=== PATIENT | female | born 1950 | race Hispanic/Latino ===

== ENCOUNTER 2017-01-27 10:50 | Day surgery (SDC) | payer MEDICARE, OTHER ==
[2016-07-19 12:25] VITALS: BMI 34.7
[2017-01-27] MEDS ORDERED: Lidocaine 2% Inj (20ml) ONE (12:40)
[2017-01-27] MEDS ORDERED: Propofol 10 mg/ml Inj (20 ML) ONE (12:50)
[2017-01-27] MEDS ORDERED: Lactated Ringer's 1,000 ML IV SCH (13:31)
[2017-01-27 14:40] VITALS: RESP 16
[2017-01-27 14:54] VITALS: BP 127/66; PULSE 70; TEMP 97.5
[2017-01-27 15:07] VITALS: O2SAT 96
== END 2017-01-27 15:16 | disposition home or self-care (01) ==
LOC: ENDO 10:50
PROVIDERS: ATTEND Internal Medicine
DX: Z12.11 Encounter for screening for malignant neoplasm of colon (principal); D12.5 Benign neoplasm of sigmoid colon; D12.3 Benign neoplasm of transverse colon; K62.1 Rectal polyp; K63.5 Polyp of colon; E11.9 Type 2 diabetes mellitus without complications; I10 Essential (primary) hypertension; J44.9 Chronic obstructive pulmonary disease, unspecified
CPT/HCPCS: 45380; 82948; 88305; J2704; J7120

== ENCOUNTER 2018-05-20 19:08 | Observation (INO) | payer MEDICARE, OTHER ==
--- NOTE | 2018-05-20 19:38 | ED PDOC ---
Arrival/HPI - General Chief Complaint: Weakness/Neurological Deficit Time Seen by Provider: 05/20/18 19:26 Historian: Patient - History of Present Illness Narrative History of Present Illness (Text): 05/20/18 19:35 Patient is a 67 year old female whose past medical history includes Martinez's palsy , and diabetes mellitus, who presents to the Emergency department complaining of left facial weakness prior to arrival. Patient reports having Martinez's palsy 5 years ago and denies any residual deficits. She currently complains of left facial weakness involving her left eyelid, and slight slurred speech. She mentions having a hard time closing her left eye, and is starting to experience a headache. Patient denies fevers, chills, cough, shortness of breath, chest pain, dyspnea on exertion, back pain, neck pain, dizziness, or any other complaint. Time/Duration: Prior to Arrival Symptom Onset: Sudden Symptom Course: Unchanged Context: Home Past Medical History - Provider Review Nursing Documentation Reviewed: Yes - Infectious Disease Hx of Infectious Diseases: None - Cardiac Hx Cardiac Disorders: Yes Hx Hypertension: Yes - Pulmonary Hx Respiratory Disorders: Yes Hx Chronic Obstructive Pulmonary Disease (COPD): Yes - Neurological Hx Neurological Disorder: Yes Other/Comment: MARTINEZ'S PALSEY - HEENT Hx HEENT Disorder: No - Renal Hx Renal Disorder: No - Endocrine/Metabolic Hx Endocrine Disorders: Yes Hx Diabetes Mellitus Type 2: Yes - Hematological/Oncological Hx Blood Disorders: No - Integumentary Hx Dermatological Disorder: No - Musculoskeletal/Rheumatological Hx Musculoskeletal Disorders: Yes Hx Back Pain: Yes - Gastrointestinal Hx Gastrointestinal Disorders: No - Genitourinary/Gynecological Hx Genitourinary Disorders: Yes Other/Comment: OVERACTIVE BLADDER - Psychiatric Hx Psychophysiologic Disorder: No Hx Substance Use: No - Surgical History Hx Appendectomy: Yes Hx Cardiac Catheterization: Yes Hx Coronary Stent: Yes - Anesthesia Hx Anesthesia Reactions: No - Suicidal Assessment Feels Threatened In Home Enviroment: No Family/Social History - Physician Review Nursing Documentation Reviewed: Yes Family/Social History: No Known Family HX Smoking Status: Never Smoked Hx Alcohol Use: No (RARE) Hx Substance Use: No Allergies/Home Meds Allergies/Adverse Reactions: Allergies Penicillins Allergy (Severe, Verified 05/20/18 19:13) SWELLING Home Medications: Home Meds Medication Instructions Recorded Confirmed Atenolol 100 mg PO QAM 10/02/15 05/20/18 Enalapril Maleate 10 mg PO BID 10/02/15 05/20/18 SITagliptin [Januvia] 75 mg PO DAILY 10/02/15 05/20/18 GlipiZIDE [Glucotrol] 5 mg PO BID 12/04/15 05/20/18 Simvastatin 20 mg PO QPM 12/04/15 05/20/18 metFORMIN [glucOPHAGE] 1,000 mg PO BID 12/04/15 05/20/18 Tolterodine [Detrol] 1 tab PO DAILY 02/26/16 05/20/18 Review of Systems - Physician Review All systems were reviewed & negative as marked: Yes - Review of Systems Constitutional: absent: Fevers, Night Sweats Respiratory: absent: SOB, Cough Cardiovascular: absent: Chest Pain, HAYES Musculoskeletal: absent: Back Pain, Neck Pain Neurological: Headache, Focal Weakness (left facial weakness). absent: Dizziness Physical Exam Vital Signs Reviewed: Yes Vital Signs Temp Pulse Resp BP Pulse Ox 05/20/18 22:31 84 18 148/74 94 L 05/20/18 21:09 79 20 146/75 93 L 05/20/18 19:15 98.7 F 86 16 188/83 H 94 L Temperature: Afebrile Blood Pressure: Hypertensive Pulse: Regular Respiratory Rate: Normal Appearance: Positive for: Well-Appearing Mental Status: Positive for: Alert and Oriented X 3 - Systems Exam Head: Present: Atraumatic, Normocephalic Pupils: Present: PERRL Extroacular Muscles: Present: EOMI Conjunctiva: Present: Normal Mouth: Present: Moist Mucous Membranes Neck: Present: Normal Range of Motion Respiratory/Chest: Present: Clear to Auscultation, Good Air Exchange. No: Respiratory Distress, Accessory Muscle Use Cardiovascular: Present: Regular Rate and Rhythm, Normal S1, S2. No: Murmurs Abdomen: No: Tenderness, Distention, Peritoneal Signs Back: Present: Normal Inspection Upper Extremity: Present: Normal Inspection. No: Cyanosis, Edema Lower Extremity: Present: Normal Inspection. No: Edema Neurological: Present: GCS=15, CN II-XII Intact, Other (Left facial droop, weakness of left side of forehead and left eyelid.) Skin: Present: Warm, Dry, Normal Color. No: Rashes Psychiatric: Present: Alert, Oriented x 3, Normal Insight, Normal Concentration Medical Decision Making ED Course and Treatment: 05/20/18 19:33 Impression: Patient is a 67 year old female who presents to the Emergency department with left facial weakness. Differential Diagnosis included but are not limited to: Martinez's Palsy Plan: -- EKG -- Head CT without contrast -- Chest X-ray -- Labs -- Cardiac enzymes -- Blood work -- IV fluids -- Reassess and disposition Prior Visits: Notes and results from previous visits were reviewed. Progress Notes: 05/20/18 19:24 Nurses called code stroke. Exam findings are consistent with Martinez's palsy. 05/20/18 19:[address] without IV contrast: FINDINGS: Brain: Unremarkable. No hemorrhage. No significant white matter disease. No edema. Ventricles: Unremarkable. No ventriculomegaly. Bones/joints: Unremarkable. No acute fracture. Soft tissues: Unremarkable. Sinuses: Unremarkable as visualized. No acute sinusitis. Mastoid air cells: Unremarkable as visualized. No mastoid effusion. IMPRESSION: No evidence for acute intracranial abnormality. Preliminary interpretation is based on receipt of 355 image(s). A final report will be issued subsequently. Dictated and Authenticated by: Brooke Colvin MD 05/20/18 20:[address] Molina, neurologist, and updated her that patient has Martinez' s palsy. 05/20/18 20:26 EKG shows NSR at [address]/T wave changes. Normal interval and normal axis. Interpreted by me. 05/20/18 20:33 Chest X-ray shows no acute processes. Interpreted by me. 05/20/18 21:14 Case discussed with medical care administrator business information analyst, who is aware and agrees with plan. 05/20/18 21:[address] Trevin Pardo, who is aware and agrees with plan. Accepts pt in to hospitalist service. Pt will go to remote telemetry observation for Martinez' s palsy. case d/w dr molina will cancel code stroke 05/21/18 20:14 - Lab Interpretations Lab Results: 05/20/18 19:31 05/20/18 19:31 Lab Results 05/20/18 20:14: Hemoglobin A1c 7.3 H 05/20/18 19:36: Blood Type A POSITIVE, Antibody Screen Negative, BBK History Checked No verified bt 05/20/18 19:31: Sodium 136, Potassium 4.5, Chloride 99, Carbon Dioxide 23, Anion Gap 19, BUN 17, Creatinine 0.8, Est GFR ( Amer) > 60, Est GFR (Non- Af Amer) > 60, Random Glucose 132 H, Calcium 9.4, Total Bilirubin 0.4, AST 39 H D, ALT 36, Alkaline Phosphatase 80, Troponin I < 0.01, Total Protein 8.2, Albumin 4.8, Globulin 3.4, Albumin/Globulin Ratio 1.4, Triglycerides 180 H, Cholesterol 152, LDL Cholesterol Direct 69, HDL Cholesterol 53 05/20/18 19:31: PT 10.7, INR 0.94, APTT 26.2 05/20/18 19:31: WBC 9.3 D, RBC 4.33, Hgb 12.5, Hct 37.2, MCV 85.9, MCH 28.9, MCHC 33.6, RDW 13.7, Plt Count 251, MPV 9.7, Gran % 75.6 H, Lymph % (Auto) 17.2 L, Meigs % (Auto) 5.4, Eos % (Auto) 1.6, Baso % (Auto) 0.2, Gran # 7.05 H, Lymph # (Auto) 1.6, Meigs # (Auto) 0.5, Eos # (Auto) 0.2, Baso # (Auto) 0.02 05/20/18 08:55: Blood Type Confirm A POSITIVE I have reviewed the lab results: Yes - RAD Interpretation Radiology Orders: 05/20/18 19:31 HEAD W/O (CODE STROKE) [CT] Stat CHEST PORTABLE [RAD] Stat Soakers Supervisor: ED Physician, Radiologist - EKG Interpretation Interpreted by ED Physician: Yes Type: 12 lead EKG - Medication Orders Current Medication Orders: Albuterol/Ipratropium (Duoneb 3 Mg/0.5 Mg (3 Ml) Ud) 3 ml IH [id number] PRN PRN Reason: Shortness of Breath Artificial Tears (Artificial Tears) 1 ml OU BID PRN PRN Reason: Dry eyes Last Admin: 05/21/18 10:02 Dose: 1 drop Aspirin (Ecotrin) 81 mg PO DAILY [facility] Last Admin: 05/21/18 10:03 Dose: 81 mg Atenolol (Tenormin) 100 mg PO QAM [facility] Last Admin: 05/21/18 10:04 Dose: 100 mg Atorvastatin Calcium (Lipitor) 10 mg PO DIN [facility] Last Admin: 05/21/18 17:45 Dose: 10 mg Clopidogrel Bisulfate (Plavix) 75 mg PO DAILY [facility] Last Admin: 05/21/18 10:04 Dose: 75 mg Docusate Sodium (Colace) 100 mg PO BID [facility] Last Admin: 05/21/18 17:44 Dose: 100 mg Last Bowel Movement Document 05/21/18 17:44 RA (Rec: 05/21/18 17:44 RA [id number]) Last Bowel Movement Last Bowel Movement 05/20/18 Glipizide (Glucotrol) 5 mg PO BID [facility] Last Admin: 05/21/18 17:45 Dose: 5 mg Acyclovir 800 mg/ Sodium (Chloride) 100 mls @ 100 mls/hr IV Q8 [facility] PRN Reason: Protocol Last Admin: 05/21/18 21:33 Dose: 100 mls/hr eMAR Start Stop Document 05/21/18 21:33 SD (Rec: 05/21/18 21:33 SD [id number]) Intravenous Solution Start Date 05/21/18 Start Time 21:33 Insulin Human Regular (Humulin R Low) 0 units SC ACHS [facility] PRN Reason: Protocol Last Admin: 05/21/18 22:10 Dose: Not Given Non-Admin Reason: Blood Sugar Parameter MAR Blood Glucose Document 05/21/18 22:10 SD (Rec: 05/21/18 22:10 SD [id number]) Blood Glucose Finger Stick Blood Glucose (70-120) 271 Lisinopril (Zestril) 20 mg PO DAILY [facility] Last Admin: 05/21/18 10:04 Dose: 20 mg Methylprednisolone (Solu-Medrol) 60 mg IVP DAILY [facility] Last Admin: 05/21/18 10:03 Dose: 60 mg IVP Administration Document 05/21/18 10:03 RA (Rec: 05/21/18 10:03 RA [id number]) Charges for Administration # of IVP Administrations 1 Non-Formulary Medication (Tolterodine [Detrol]) 1 tab PO DAILY [facility] Pantoprazole Sodium (Protonix Ec Tab) 40 mg PO 0600 [facility] Last Admin: 05/21/18 06:30 Dose: 40 mg Discontinued Medications Glipizide (Glucotrol) 5 mg PO BIDWM [facility] Last Admin: 05/21/18 10:06 Dose: 5 mg Sodium Chloride (Sodium Chloride 0.9%) 1,000 mls @ 100 mls/hr IV .Q10H [facility] Last Admin: 05/20/18 21:17 Dose: 100 mls/hr eMAR Start Stop Document 05/20/18 21:17 JOL (Rec: 05/20/18 21:18 JOL [id number]) Intravenous Solution Start Date 05/20/18 Start Time 21:18 Methylprednisolone (Solu-Medrol) 60 mg IVP Q8 [facility] Last Admin: 05/21/18 06:30 Dose: 60 mg IVP Administration Document 05/21/18 06:30 [facility] (Rec: 05/21/18 06:30 [facility]) Charges for Administration # of IVP Administrations 1 Methylprednisolone (Solu-Medrol) 60 mg IV STAT STA Stop: 05/20/18 22:40 Last Admin: 05/21/18 00:57 Dose: 60 mg eMAR Start Stop Document 05/21/18 00:57 [facility] (Rec: 05/21/18 00:57 [facility]) Intravenous Solution Start Date 05/21/18 Start Time 00:57 Pneumococcal Polyvalent Vaccine (Pneumovax 23 Vaccine) 0.5 ml IM .ONCE ONE Stop: 05/21/18 00:13 Last Admin: 05/21/18 07:47 Dose: MAR Immunization Data Document 05/21/18 07:47 RA (Rec: 05/21/18 07:47 RA [email or web address]) Immunization Data Vaccine Information Sheet Given Yes Immunization Registry Document 05/21/18 07:47 RA (Rec: 05/21/18 07:47 RA [email or web address]) Immunization Registry Consent Date 05/20/18 Prednisone (Prednisone Tab) 60 mg PO ONCE STA Stop: 05/20/18 21:16 Last Admin: 05/20/18 21:30 Dose: 60 mg NIHSS Scale ([place]) Time Performed: 19:24 - How Severe is the Stoke Baseline Level of Consciousness: 0=Alert LOC to Questions: 0=Both comments correct LOC to commands: 0=Obeys both correctly Best Gaze: 0=Normal Visual: 0=No visual loss Facial: 1=Minor asymmetry Motor Arm - Left: 0=No drift Motor Arm - Right: 0=No drift Motor Leg - Left: 0=No drift Motor Leg - Right: 0=No drift Limb Ataxia: 0=Absent Sensory: 0=Normal Best Language: 0=No aphasia Dysarthia: 0=Normal articulation Extinction & Inattention (Neglect): 0=Normal, no object Score: 1 Risk Level: Minor Stroke Risk rTPA Inclusion/Exclusion - Refusal of Treatment Patient Refused Treatment: No - Inclusion Criteria for Altepase Patient is 18 years or Older: Yes The Clinical Diagnosis of Ischemic Stroke That is Causing a Potentially Disabling Neurological Deficit: No Time of Onset is Well Established to be Less Than 270 Minute Before Treatment Would Begin: Yes Risk/Benefit Discussed With Patient/Family Member Present: Yes - Exclusion Criteria for Altepase Uncontrolled Hypertension at Time of Treatment (Systolic BP above 185 or Diastolic BP above 110 mmHg): No Active Internal Bleeding: No Known Bleeding Diathesis Including but Not Limited to: Platelets Below 100,000/ mm,PTT Above 40 sec After Heparin Use, Current Use of Oral Anitcoagulant With INR Greater Than 1.7 or PT Greater Than 15 secs: No Evidence of an Intracranial Hemorrhage: No Evidence of Major Acute Infarct With Signs Greater Than 1/3 MCA Territory: No Suspicion of Subarachnoid Hemorrhage on Pretreatment Evaluation Even if CT Head Negative For Hemorrhage: No - Warning to TPA With Conditions Following Conditions Weighed Against Anticipated Benefit: Yes Condition: Stroke Serevity Too Mild - Scribe Statement The provider has reviewed the documentation as recorded by the Kiaraibmaryann Webb Provider Scribe Attestation: All medical record entries made by the Scribe were at my direction and personally dictated by me. I have reviewed the chart and agree that the record accurately reflects my personal performance of the history, physical exam, medical decision making, and the department course for this patient. I have also personally directed, reviewed, and agree with the discharge instructions and disposition. Disposition/Present on Arrival - Present on Arrival Any Indicators Present on Arrival: No History of DVT/PE: No History of Uncontrolled Diabetes: No Urinary Catheter: No History of Decub. Ulcer: No History Surgical Site Infection Following: None - Disposition Have Diagnosis and Disposition been Completed?: Yes Diagnosis: Martinez's palsy Disposition: HOSPITALIZED Disposition Time: 21:25 Condition: GOOD
[2018-05-20] MEDS ORDERED: Sodium Chloride 0.9% 1,000 ML IV SCH (19:45)
[2018-05-20 19:55] LABS: BASO # 0.02 K/mm3 (0.0-2.0); BASO % 0.2 % (0.0-3.0); EOS # 0.2 (0.0-0.7); EOS % 1.6 % (1.5-5.0); GRAN # 7.05 (1.4-6.5); GRAN % 75.6 % (50.0-68.0); HEMOGLOBIN 12.5 g/dL (12.0-16.0); LYMPH # 1.6 (1.2-3.4); LYMPH % 17.2 % (22.0-35.0); MEAN CELL VOLUME 85.9 fl (80.0-105.0); MEAN CORPUSCULAR HEMOGLOBIN 28.9 pg (25.0-35.0); MEAN CORPUSCULAR HGB CONC 33.6 g/dl (31.0-37.0); MEAN PLATELET VOLUME 9.7 fl (7.0-11.0); MONO # 0.5 (0.1-0.6); MONO % 5.4 % (1.0-6.0); RBC 4.33 10^6/uL (3.5-6.1); RED CELL DISTRIBUTION WIDTH 13.7 % (11.5-14.5); WHITE BLOOD COUNT 9.3 10^3/ul (4.5-11.0)
[2018-05-20 19:56] LABS: ALB/GLOB RATIO 1.4 (1.1-1.8); ALBUMIN 4.8 g/dL (3.0-4.8); ALT/SGPT 36 U/L (7-56); AST/SGOT 39 U/L (14-36); BLOOD UREA NITROGEN 17 mg/dL (7-21); CALCIUM 9.4 mg/dL (8.4-10.5); GFR NON-AFRICAN AMERICAN > 60; HDL CHOLESTEROL 53 mg/dL (29-60)
[2018-05-20 19:59] LABS: INR 0.94; PARTIAL THROMBOPLASTIN TIME 26.2 Seconds (25.1-36.5); PROTHROMBIN TIME 10.7 SECONDS (9.4-12.5)
[2018-05-20 20:07] LABS: LDL CHOLESTEROL 69 mg/dL (0-129)
[2018-05-20 20:10] LABS: TROPONIN I < 0.01 ng/mL
[2018-05-20] MEDS ORDERED: MethylPREDNISolone 40 mg Vial IV STA (22:39)
[2018-05-20] MEDS ORDERED: Albuterol-Ipratrop 3 mg / 0.5 (3 ml) UD IH PRN (23:00)
--- NOTE | 2018-05-20 23:27 | CP.PCM.HP ---
History of Present Illness - History of Present Illness History of Present Illness: Bry Cui, PGY-1 History and Physical for Hospitalist Service CC: L sided facial weakness HPI: Ms. Cowart is a 67 year old female with a PMHx of Martinez's Palsy in 09/14, CAD s/p stent, HTN, COPD, DM, and overactive bladder who presents with L sided facial weakness that began this aftrnoon at 4 pm. The patient reports some numbness below the left nares that progressed over an hour to the left jaw and then up the left cheek. Patient denies any dizziness or changes in vision, and reports that this is the same symptoms she felt when she was diagnosed with martinez 's palsy four and a half years ago. She denies recent upper respiratory infections but does admit to recurring cold sores in the mouth. Patient drove herself to the hospital, during which time she noticed an inability to fully pronounce her vowels with some weakness on the left side of her face. At time of evaluation, no slurring of her words are appreciated. Some mild oral weakness currently. Patient reports shortness of breath and constipation but states that is her baselines. Patient denies, chest pain, palpitations, fevers, chills, cough, sore throat, weakness, recent travel, bruising, sick contacts, changes in weight. PMHx: as above PSHx: Appendectomy, foot surgery All: PCN Social: Denies ETOH and IVDU. Tobacco 1/2 pk /day x18 years but quit a few years ago. 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 Haas Cardio: Dr Quiroz Pulm: Dr. Genao Podiatry: Dr. Herron Present on Admission - Present on Admission Any Indicators Present on Admission: No Review of Systems - Review of Systems Review of Systems: 12 point ROS completed and negative except as described in HPI. Past Patient History - Infectious Disease Hx of Infectious Diseases: None - Past Social History Smoking Status: Never Smoked - CARDIAC Hx Cardiac Disorders: Yes Hx Hypertension: Yes - PULMONARY Hx Respiratory Disorders: Yes Hx Chronic Obstructive Pulmonary Disease (COPD): Yes - NEUROLOGICAL Hx Neurological Disorder: Yes Other/Comment: MARTINEZ'S PALSEY - HEENT Hx HEENT Problems: No - RENAL Hx Chronic Kidney Disease: No - ENDOCRINE/METABOLIC Hx Endocrine Disorders: Yes Hx Diabetes Mellitus Type 2: Yes - HEMATOLOGICAL/ONCOLOGICAL Hx Blood Disorders: No - INTEGUMENTARY Hx Dermatological Problems: No - MUSCULOSKELETAL/RHEUMATOLOGICAL Hx Musculoskeletal Disorders: Yes Hx Back Pain: Yes - GASTROINTESTINAL Hx Gastrointestinal Disorders: No - GENITOURINARY/GYNECOLOGICAL Hx Genitourinary Disorders: Yes Other/Comment: OVERACTIVE BLADDER - PSYCHIATRIC Hx Psychophysiologic Disorder: No Hx Substance Use: No - SURGICAL HISTORY Hx Appendectomy: Yes Hx Cardiac Catheterization: Yes Hx Coronary Stent: Yes - ANESTHESIA Hx Anesthesia Reactions: No Meds Allergies/Adverse Reactions: Allergies Allergy/AdvReac Type Severity Reaction Status Date / Time Penicillins Allergy Severe SWELLING Verified 05/20/18 19:13 Physical Exam - Head Exam Head Exam: ATRAUMATIC, NORMAL INSPECTION, NORMOCEPHALIC - Eye Exam Eye Exam: EOMI, Normal appearance. absent: Nystagmus Pupil Exam: PERRL Additional comments: R eye has extra pigmentation expanding into the bottom portion of the sclera - ENT Exam ENT Exam: Mucous Membranes Moist, Normal Exam - Neck Exam Neck exam: Positive for: Normal Inspection. Negative for: Lymphadenopathy, Tenderness, Thyromegaly - Respiratory Exam Respiratory Exam: Clear to Auscultation Bilateral, NORMAL BREATHING PATTERN. absent: Rhonchi, Wheezes, Respiratory Distress, Stridor - Cardiovascular Exam Cardiovascular Exam: RRR, +S1, +S2 - GI/Abdominal Exam GI & Abdominal Exam: Normal Bowel Sounds, Soft. absent: Distended, Guarding, Rebound, Tenderness - Extremities Exam Extremities exam: Positive for: calf tenderness (occasional cramp in R foot), full ROM. Negative for: pedal edema - Neurological Exam Neurological exam: Alert, CN II-XII Intact, Normal Gait, Oriented x3, Reflexes Normal - Expanded Neurological Exam Expanded Patient oriented to: person, place, time Speech: Fluid Speech Cranial nerves: EOM's Intact: Normal, Facial Palsey w/Forehead Movement: Abnormal Left (left side of mouth slight droop), Facial Palsey w/o Forehead Movement: Normal, Facial Sensation: Normal, Nystagmus: Normal, Tongue Deviation : Normal Ataxia: No Cerebellar Function: Finger to Nose: Normal, Heel to Garcia: Normal Upper motor neuron: Pronator Drift: Normal Sensory exam: Lower Extremity 2 Point Discrimination: Normal, Lower Extremity Light Touch: Normal, Lower Extremity Pin Prick: Normal, Upper Extremity 2 Point Discrimination: Normal, Upper Extremity Light Touch: Normal, Upper Extremity Pin Prick: Normal Neuro motor strength exam: Left Upper Extremity: 5, Right Upper Extremity: 5, Left Lower Extremity: 5, Right Lower Extremity: 5 Coma Scale Eye Opening: SPONTANEOUS Coma Scale Motor Response: OBEYS COMMANDS Coma Scale Verbal: Oriented Coma Scale Total: 15 - Psychiatric Exam Psychiatric exam: Normal Affect, Normal Mood - Skin Skin Exam: Dry, Intact, Normal Color, Warm Results - Vital Signs Recent Vital Signs: Last Vital Signs Temp 98.7 F 05/20/18 19:15 Pulse 84 05/20/18 22:31 Resp 18 05/20/18 22:31 BP 148/74 05/20/18 22:31 Pulse Ox 94 L 05/20/18 22:31 - Labs Result Diagrams: 05/20/18 19:31 05/20/18 19:31 Assessment & Plan - Assessment and Plan (Free Text) Assessment: 67 year old Female with a PMHX of Martinez's Palsy in 09/14, CAD s/p stent, HTN, COPD, DM, and overactive bladder who presents with likely recurrent effects of history of Left sided martinez's palsy weakness. Plan: L sided facial weakness 2/2 flare of Martinez's Palsy vs inflammatory disease vs DM vs sarcoid Code stroke called in ED CT head negative CXR negative EKG shows NSR at [address]/T wave changes. Patient describes symptoms exactly as they were when first diagnosed almost 5 years ago no residual weakness, aphasia, or ataxia. Passed nursing swallow screen patient received 60 prednisone PO and 60 IV solu-medrol tonight, will begin on solu-medrol 60 q8 in AM Neuro consulted (Dr. Okeefe) - appreciate recommendations Neuro checks q4 f/u AM labs f/u JONELLE levels for concern of sarcoid causing pressure on facial nerve in setting of shortness of breath DM low ISS accuchecks HHD can expect elevations 2/2 steroids f/u a1c COPD Duonebs 3 q6 prn steroids continue to monitor saturation HTN continue home meds HLD Cholesterol 180 c/w home meds Constipation colace 100 BID per patient reported home dose continue to monitor CAD continue dual anti-platelet therapy Overactive bladder continue home med GI/DVT ppx SCD's Protonix 40 Patient seen, case reviewed and plan discussed with Dr. Pardo. Bry Cui, PGY-1
[2018-05-21 00:12] VITALS: BMI 35.7
[2018-05-21] MEDS ORDERED: Pneumococcal 23-Valent Vaccine IM ONE (00:12)
[2018-05-21] MEDS ORDERED: MethylPREDNISolone 40 mg Vial IVP SCH ×2 (06:00→10:00)
[2018-05-21] MEDS: Pantoprazole 40 mg EC Tab PO SCH (06:30)
[2018-05-21 06:51] VITALS: RESP 20
[2018-05-21 08:05] LABS: GRAN # 6.48 (1.4-6.5); GRAN % 90.8 % (50.0-68.0); HEMOGLOBIN 12.6 g/dL (12.0-16.0); LYMPH # 0.6 (1.2-3.4); LYMPH % 8.8 % (22.0-35.0); MEAN CELL VOLUME 85.4 fl (80.0-105.0); MEAN CORPUSCULAR HEMOGLOBIN 29.6 pg (25.0-35.0); MEAN CORPUSCULAR HGB CONC 34.6 g/dl (31.0-37.0); MEAN PLATELET VOLUME 9.8 fl (7.0-11.0); MONO % 0.4 % (1.0-6.0); PLATELET COUNT 232 10^3/uL (120.0-450.0); RBC 4.26 10^6/uL (3.5-6.1); RED CELL DISTRIBUTION WIDTH 13.8 % (11.5-14.5); WHITE BLOOD COUNT 7.1 10^3/ul (4.5-11.0)
[2018-05-21] MEDS: Insulin Reg-LOW-Coverage SC SCH ×4 (08:08→22:10)
[2018-05-21] MEDS ORDERED: Aritificial Tears (15ml) OU PRN (08:41)
[2018-05-21 08:44] LABS: BLOOD UREA NITROGEN 17 mg/dL (7-21); CALCIUM 9.5 mg/dL (8.4-10.5); GFR NON-AFRICAN AMERICAN > 60
--- NOTE | 2018-05-21 08:48 | CP.PCM.PN ---
<Lexa Montesinos - Last Filed: 05/21/18 10:41> Subjective - Date & Time of Evaluation Date of Evaluation: 05/21/18 Time of Evaluation: 07:00 - Subjective Subjective: Patient seen and evaluated bed side this morning. NO acute issues overnight. Patient states she still feels some numbness by her mouth on the left side. Denies any other new symptoms. She also states her eyes are dry and usually are dry. Denies chest pain, SOB, fever, chills, any focal deficits, or any other complaints at this time. Objective - Vital Signs/Intake and Output Vital Signs (last 24 hours): Temp Pulse Resp BP Pulse Ox 98.4 F 83 20 135/58 L 97 05/21/18 06:00 05/21/18 06:00 05/21/18 06:00 05/21/18 06:00 05/21/18 06:00 Intake and Output: 05/21/18 05/21/18 06:59 18:59 Intake Total 720 Balance 720 - Medications Medications: Current Medications Albuterol/Ipratropium (Duoneb 3 Mg/0.5 Mg (3 Ml) Ud) 3 ml IH [id number] PRN PRN Reason: Shortness of Breath Artificial Tears (Artificial Tears) 1 ml OU BID PRN PRN Reason: Dry eyes Aspirin (Ecotrin) 81 mg PO DAILY [facility] Atenolol (Tenormin) 100 mg PO QAM [facility] Atorvastatin Calcium (Lipitor) 10 mg PO DIN [facility] Clopidogrel Bisulfate (Plavix) 75 mg PO DAILY [facility] Docusate Sodium (Colace) 100 mg PO BID [facility] Glipizide (Glucotrol) 5 mg PO BIDWM [facility] Insulin Human Regular (Humulin R Low) 0 units SC ACHS [facility] PRN Reason: Protocol Last Admin: 05/21/18 08:08 Dose: 3 unit Lisinopril (Zestril) 20 mg PO DAILY [facility] Last Admin: 05/21/18 00:52 Dose: 20 mg Methylprednisolone (Solu-Medrol) 60 mg IVP DAILY [facility] Non-Formulary Medication (Tolterodine [Detrol]) 1 tab PO DAILY [facility] Pantoprazole Sodium (Protonix Ec Tab) 40 mg PO 0600 [facility] Last Admin: 05/21/18 06:30 Dose: 40 mg - Labs Labs: 05/21/18 07:00 05/21/18 07:00 PT 10.7 SECONDS (9.4-12.5) 05/20/18 19:31 INR 0.94 05/20/18 19:31 APTT 26.2 Seconds (25.1-36.5) 05/20/18 19:31 - Constitutional Appears: Well, Non-toxic, No Acute Distress - Head Exam Head Exam: ATRAUMATIC, NORMAL INSPECTION, NORMOCEPHALIC - Eye Exam Eye Exam: EOMI, PERRL. absent: Nystagmus Pupil Exam: NORMAL ACCOMODATION, PERRL Additional comments: right eye droop, right nasal labial fold deviating to the right - ENT Exam ENT Exam: Mucous Membranes Dry - Neck Exam Neck Exam: Normal Inspection. absent: Lymphadenopathy - Respiratory Exam Respiratory Exam: Clear to Ausculation Bilateral, NORMAL BREATHING PATTERN - Cardiovascular Exam Cardiovascular Exam: REGULAR RHYTHM, +S1, +S2 - GI/Abdominal Exam GI & Abdominal Exam: Soft, Normal Bowel Sounds. absent: Tenderness - Extremities Exam Extremities Exam: Full ROM. absent: Calf Tenderness, Pedal Edema - Neurological Exam Neurological Exam: Alert, Awake, CN II-XII Intact Neuro motor strength exam: Left Upper Extremity: 5, Right Upper Extremity: 5, Left Lower Extremity: 5, Right Lower Extremity: 5 Additional comments: slight facial droop on right side of face, unable to puff out cheek on right side - Skin Skin Exam: Normal Color, Warm Assessment and Plan - Assessment and Plan (Free Text) Assessment: 67 year old Female with a PMHX of Martinez's Palsy in 09/14, CAD s/p stent, HTN, COPD, DM, and overactive bladder who presents with left sided facial weakness. Plan: L sided facial weakness -Code stroke called in ED -CT head negative -CXR negative -EKG shows NSR at [address]/T wave changes. -no residual weakness, aphasia, or ataxia. Passed nursing swallow screen -solumedrol 60 IV daily -Neuro consulted Dr. Okeefe, follow recs -Neuro checks q4 -continue to monitor symptoms -artificial tears -NELLY, RF ordered DM -low ISS with accuchecks ACHS -HHD -can expect elevations 2/2 steroids -started on home lipizide 5mg BID COPD-chronic -Duonebs 3 q6 prn -steroids -continue to monitor oxygen saturation HTN-chronic -continue home meds HLD-chronic -c/w home meds Constipation-chronic -colace 100 BID per patient reported home dose -continue to monitor CAD -continue home aspirin and plavix Overactive bladder -continue home tolteridine GI/DVT ppx SCD's Protonix 40 <HeribertoKiah mendoza - Last Filed: 05/22/18 15:26> Objective - Vital Signs/Intake and Output Vital Signs (last 24 hours): Temp Pulse Resp BP Pulse Ox 98 F 58 L 20 136/53 L 98 05/22/18 08:11 05/22/18 10:00 05/22/18 08:11 05/22/18 09:14 05/22/18 08:11 Intake and Output: 05/22/18 05/22/18 06:59 18:59 Intake Total 300 Balance 300 - Labs Labs: 05/22/18 05:50 05/22/18 05:50 PT 10.7 SECONDS (9.4-12.5) 05/20/18 19:31 INR 0.94 05/20/18 19:31 APTT 26.2 Seconds (25.1-36.5) 05/20/18 19:31 Attending/Attestation - Attestation I have personally seen and examined this patient.: Yes I have fully participated in the care of the patient.: Yes I have reviewed all pertinent clinical information, including history, physical exam and plan: Yes Notes (Text): 05/22/18 15:18 Attending note; Patient is a 67 year old Female with a PMHX of Martinez's Palsy in 09/14, CAD s/p stent, HTN, COPD, DM, and overactive bladder who presents with left sided facial weakness. Initial CT head is negative. Initially code stroke was called. Case discussed with neurologist in detail. Patient with left facial nerve palsy. Started on IV prednisolone and acyclvir. left eye patch ordered. Artificial tears ordered. patient denies any focal neurological deficit. MRI ordered. Possible discharge home tomorrow if clinically stable. upon discharge the patient will follow-up with PMd DR. Hutchinson.
--- NOTE | 2018-05-21 09:10 | RAD ---
Date of service: 05/20/2018 HISTORY: Code Stroke COMPARISON: Comparison chest 02/26/2016 FINDINGS: LUNGS: Minor bibasilar atelectasis. PLEURA: No significant pleural effusion identified, no pneumothorax apparent. CARDIOVASCULAR: Mild cardiomegaly. OSSEOUS STRUCTURES: No significant abnormalities. VISUALIZED UPPER ABDOMEN: Normal. OTHER FINDINGS: None. IMPRESSION: Minor bibasilar atelectasis.
--- NOTE | 2018-05-21 09:36 | CT ---
Date of service: 05/20/2018 PROCEDURE: CT HEAD WITHOUT CONTRAST. HISTORY: CVA COMPARISON: None available. TECHNIQUE: Axial computed tomography images were obtained through the head/brain without intravenous contrast. Radiation dose: Total exam DLP = 874.81 mGy-cm. This CT exam was performed using one or more of the following dose reduction techniques: Automated exposure control, adjustment of the mA and/or kV according to patient size, and/or use of iterative reconstruction technique. FINDINGS: HEMORRHAGE: No acute parenchymal, subarachnoid or extra-axial hemorrhage. BRAIN: Suspect minimal chronic periventricular white matter ischemic changes. Note that the possibility of a small hyperacute infarct cannot be excluded on this study. Mild age-appropriate volume loss VENTRICLES: No obstructive hydrocephalus. CALVARIUM: Unremarkable. PARANASAL SINUSES: Unremarkable as visualized. No significant inflammatory changes. MASTOID AIR CELLS: Unremarkable as visualized. No inflammatory changes. OTHER FINDINGS: None. IMPRESSION: No intracranial hemorrhage. Suspect minimal chronic periventricular white matter ischemic changes. Note that the possibility of a small hyperacute infarct cannot be excluded on this study. Minor atrophy.
[2018-05-21] MEDS ORDERED: TOLTERODINE PO SCH (10:00)
[2018-05-21 10:07] LABS: ANISOCYTOSIS SLIGHT; LYMPHOCYTE 8 % (22.0-35.0); MONOCYTE 2 % (1.0-6.0); NEUTROPHIL 90 % (50.0-70.0); PLATELET ESTIMATE NORMAL (NORMAL)
--- NOTE | 2018-05-21 11:21 | CARD ---
APPROVED REPORT Date of service: 05/20/2018 EKG Measurement Heart [id number] <Conclusion> Normal sinus rhythm Normal ECG
--- NOTE | 2018-05-21 17:09 | CP.PCM.CON ---
History of Present Illness - History of Present Illness History of Present Illness: 67 yr old woman who presentd last night with acute facial weakness that is currently being evaluated. Past Patient History - Infectious Disease Hx of Infectious Diseases: None - Past Social History Smoking Status: Never Smoked - CARDIAC Hx Cardiac Disorders: Yes Hx Hypertension: Yes - PULMONARY Hx Respiratory Disorders: Yes Hx Chronic Obstructive Pulmonary Disease (COPD): Yes - NEUROLOGICAL Hx Neurological Disorder: Yes Other/Comment: BENITES'S PALSEY - HEENT Hx HEENT Problems: No - RENAL Hx Chronic Kidney Disease: No - ENDOCRINE/METABOLIC Hx Endocrine Disorders: Yes Hx Diabetes Mellitus Type 2: Yes - HEMATOLOGICAL/ONCOLOGICAL Hx Blood Disorders: No - INTEGUMENTARY Hx Dermatological Problems: No - MUSCULOSKELETAL/RHEUMATOLOGICAL Hx Musculoskeletal Disorders: Yes Hx Back Pain: Yes - GASTROINTESTINAL Hx Gastrointestinal Disorders: No - GENITOURINARY/GYNECOLOGICAL Hx Genitourinary Disorders: Yes Other/Comment: OVERACTIVE BLADDER - PSYCHIATRIC Hx Psychophysiologic Disorder: No Hx Substance Use: No - SURGICAL HISTORY Hx Appendectomy: Yes Hx Cardiac Catheterization: Yes Hx Coronary Stent: Yes - ANESTHESIA Hx Anesthesia Reactions: No Meds Allergies/Adverse Reactions: Allergies Allergy/AdvReac Type Severity Reaction Status Date / Time Penicillins Allergy Severe SWELLING Verified 05/20/18 19:13 - Medications Medications: Current Medications Albuterol/Ipratropium (Duoneb 3 Mg/0.5 Mg (3 Ml) Ud) 3 ml IH [id number] PRN PRN Reason: Shortness of Breath Artificial Tears (Artificial Tears) 1 ml OU BID PRN PRN Reason: Dry eyes Last Admin: 05/21/18 10:02 Dose: 1 drop Aspirin (Ecotrin) 81 mg PO DAILY [facility] Last Admin: 05/21/18 10:03 Dose: 81 mg Atenolol (Tenormin) 100 mg PO QAM [facility] Last Admin: 05/21/18 10:04 Dose: 100 mg Atorvastatin Calcium (Lipitor) 10 mg PO DIN [facility] Clopidogrel Bisulfate (Plavix) 75 mg PO DAILY [facility] Last Admin: 05/21/18 10:04 Dose: 75 mg Docusate Sodium (Colace) 100 mg PO BID [facility] Last Admin: 05/21/18 10:03 Dose: 100 mg Glipizide (Glucotrol) 5 mg PO BID [facility] Insulin Human Regular (Humulin R Low) 0 units SC [facility] PRN Reason: Protocol Last Admin: 05/21/18 11:40 Dose: 3 unit Lisinopril (Zestril) 20 mg PO DAILY [facility] Last Admin: 05/21/18 10:04 Dose: 20 mg Methylprednisolone (Solu-Medrol) 60 mg IVP DAILY [facility] Last Admin: 05/21/18 10:03 Dose: 60 mg Non-Formulary Medication (Tolterodine [Detrol]) 1 tab PO DAILY [facility] Pantoprazole Sodium (Protonix Ec Tab) 40 mg PO 0600 [facility] Last Admin: 05/21/18 06:30 Dose: 40 mg Results - Vital Signs Recent Vital Signs: Last Vital Signs Temp 98.0 F 05/21/18 16:35 Pulse 71 05/21/18 16:35 Resp 20 05/21/18 16:35 BP 148/67 05/21/18 16:35 Pulse Ox 97 05/21/18 06:00 - Labs Result Diagrams: 05/21/18 07:00 05/21/18 07:00 Labs: Laboratory Results - last 24 hr 05/20/18 05/21/18 05/21/18 22:48 07:00 07:00 WBC 7.1 D RBC 4.26 Hgb 12.6 Hct 36.4 MCV 85.4 MCH 29.6 MCHC 34.6 RDW 13.8 Plt Count 232 MPV 9.8 Gran % 90.8 H Lymph % (Auto) 8.8 L [place] % (Auto) 0.4 L Eos % (Auto) 0.0 L Baso % (Auto) 0.0 Gran # 6.48 Lymph # (Auto) 0.6 L [place] # (Auto) 0.0 L Eos # (Auto) 0.0 Baso # (Auto) 0.00 Neutrophils % (Manual) 90 H Lymphocytes % (Manual) 8 L Monocytes % (Manual) 2 Platelet Evaluation Normal Anisocytosis (manual) Slight Sodium 139 Potassium 4.3 Chloride 103 Carbon Dioxide 22 Anion Gap 18 BUN 17 Creatinine 0.7 Est GFR ( Amer) > 60 Est GFR (Non-Af Amer) > 60 Random Glucose 241 H Calcium 9.5 Phosphorus 3.5 Magnesium 1.8 Assessment & Plan - Assessment and Plan (Free Text) Assessment: CT head: normal MRI Brain: pending. A/p: 67 yr old woman with [place] palsy vs stroke, more likely to be [place] Plan: 1. Start acyclovir 800 mg bid 2. COntinue prednisone at 80 mg po qd for 5 days 3. MRI brain to rule out stroke. 4. Eye patch 5. Artificial tears Thank you DR. molina
[2018-05-22] MEDS: Pantoprazole 40 mg EC Tab PO SCH (06:23)
[2018-05-22 06:27] LABS: BASO # 0.01 K/mm3 (0.0-2.0); BASO % 0.1 % (0.0-3.0); EOS % 0.1 % (1.5-5.0); GRAN # 7.41 (1.4-6.5); HEMOGLOBIN 11.4 g/dL (12.0-16.0); LYMPH # 1.7 (1.2-3.4); LYMPH % 17.8 % (22.0-35.0); MEAN CELL VOLUME 86.3 fl (80.0-105.0); MEAN CORPUSCULAR HEMOGLOBIN 28.4 pg (25.0-35.0); MEAN CORPUSCULAR HGB CONC 32.9 g/dl (31.0-37.0); MEAN PLATELET VOLUME 9.5 fl (7.0-11.0); MONO # 0.6 (0.1-0.6); RBC 4.01 10^6/uL (3.5-6.1)
[2018-05-22 06:29] LABS: BLOOD UREA NITROGEN 22 mg/dL (7-21); CALCIUM 9.1 mg/dL (8.4-10.5); GFR NON-AFRICAN AMERICAN > 60
[2018-05-22 06:44] LABS: WHITE BLOOD COUNT 9.8 10^3/ul (4.5-11.0)
[2018-05-22 08:12] VITALS: TEMP 98; O2SAT 98
[2018-05-22] MEDS: Insulin Reg-LOW-Coverage SC SCH ×2 (08:20→11:45)
[2018-05-22 09:28] VITALS: BP 136/53
[2018-05-22] MEDS ORDERED: Gadodiamide 287 MG/ML VIAL (15ML) IV ONE (10:32)
[2018-05-22 10:44] LABS: URINE BILIRUBIN NEGATIVE (NEGATIVE); URINE BLOOD NEGATIVE (NEGATIVE); URINE GLUCOSE (UA) NEGATIVE (NEGATIVE); URINE LEUKOCYTE ESTERASE NEGATIVE Leu/uL (NEGATIVE); URINE PROTEIN NEGATIVE mg/dL (<30 mg/dL); URINE UROBILINOGEN 0.2 E.U./dL (<1 E.U./dL)
[2018-05-22 10:47] VITALS: PULSE 58
[2018-05-22 10:56] LABS: URINE APPEARANCE CLEAR (CLEAR); URINE COLOR YELLOW (YELLOW)
--- NOTE | 2018-05-22 11:08 | CP.PCM.PCO ---
Physician Communication Note - Physician Communication Note Physician Communication Note: Please provide eye patch for left eye
--- NOTE | 2018-05-22 11:27 | CP.PCM.PN ---
Subjective - Date & Time of Evaluation Date of Evaluation: 05/22/18 Time of Evaluation: 09:24 - Subjective Subjective: Ronny Macdonald PGY2 Neurology Progress Note for Dr. Okeefe Patient was seen and examined at bedside. There were no acute overnight events. Patient's symptoms are improving, but still has trouble closing her eye and it' s drying it out. The patient states that she will be travelling to [place] on Tuesday05/30/18 till 07/18/18. She was instructed to finish her course of antiviral, steroid, f/u neurologist in [place], and if she still feels sick when she returns, to see Dr. Okeefe in office. 12-pt ROS was reviewed and is otherwise unremarkable. Objective - Vital Signs/Intake and Output Vital Signs (last 24 hours): Temp Pulse Resp BP Pulse Ox 98 F 58 L 20 136/53 L 98 05/22/18 08:11 05/22/18 10:00 05/22/18 08:11 05/22/18 09:14 05/22/18 08:11 Intake and Output: 05/22/18 05/22/18 06:59 18:59 Intake Total 300 Balance 300 - Medications Medications: Current Medications Albuterol/Ipratropium (Duoneb 3 Mg/0.5 Mg (3 Ml) Ud) 3 ml IH [id number] PRN PRN Reason: Shortness of Breath Artificial Tears (Artificial Tears) 1 ml OU BID PRN PRN Reason: Dry eyes Last Admin: 05/21/18 10:02 Dose: 1 drop Aspirin (Ecotrin) 81 mg PO DAILY [facility] Last Admin: 05/22/18 09:12 Dose: 81 mg Atenolol (Tenormin) 100 mg PO QAM [facility] Last Admin: 05/22/18 09:14 Dose: 100 mg Atorvastatin Calcium (Lipitor) 10 mg PO DIN [facility] Last Admin: 05/21/18 17:45 Dose: 10 mg Clopidogrel Bisulfate (Plavix) 75 mg PO DAILY [facility] Last Admin: 05/22/18 09:13 Dose: 75 mg Docusate Sodium (Colace) 100 mg PO BID [facility] Last Admin: 05/22/18 09:12 Dose: 100 mg Glipizide (Glucotrol) 5 mg PO BID [facility] Last Admin: 05/22/18 09:13 Dose: 5 mg Acyclovir 800 mg/ Sodium (Chloride) 100 mls @ 100 mls/hr IV Q8 [facility] PRN Reason: Protocol Last Admin: 05/22/18 06:17 Dose: 100 mls/hr Insulin Human Regular (Humulin R Low) 0 units SC ACHS [facility] PRN Reason: Protocol Last Admin: 05/22/18 08:20 Dose: Not Given Lisinopril (Zestril) 20 mg PO DAILY [facility] Last Admin: 05/22/18 09:14 Dose: 20 mg Non-Formulary Medication (Tolterodine [Detrol]) 1 tab PO DAILY [facility] Pantoprazole Sodium (Protonix Ec Tab) 40 mg PO 0600 [facility] Last Admin: 05/22/18 06:23 Dose: 40 mg Prednisone (Prednisone Tab) 80 mg PO DAILY [facility] Last Admin: 05/22/18 09:13 Dose: 80 mg - Labs Labs: 05/22/18 05:50 05/22/18 05:50 PT 10.7 SECONDS (9.4-12.5) 05/20/18 19:31 INR 0.94 05/20/18 19:31 APTT 26.2 Seconds (25.1-36.5) 05/20/18 19:31 - Constitutional Appears: Well, Non-toxic, No Acute Distress - Head Exam Head Exam: NORMAL INSPECTION - Eye Exam Additional comments: left eye unable to close/dry - ENT Exam ENT Exam: Mucous Membranes Moist - Neck Exam Neck Exam: Normal Inspection - Respiratory Exam Respiratory Exam: NORMAL BREATHING PATTERN. absent: Rales, Rhonchi, Wheezes - Cardiovascular Exam Cardiovascular Exam: RRR, +S1, +S2 - GI/Abdominal Exam GI & Abdominal Exam: Soft, Normal Bowel Sounds. absent: Distended, Tenderness - Extremities Exam Extremities Exam: Full ROM - Back Exam Back Exam: NORMAL INSPECTION - Neurological Exam Neurological Exam: Alert, Awake, CN II-XII Intact, Oriented x3. absent: Motor Sensory Deficit Neuro motor strength exam: Left Upper Extremity: 5, Right Upper Extremity: 5, Left Lower Extremity: 5, Right Lower Extremity: 5 Additional comments: no facial sensory deficits left sided facial palsy, mild affecting eye mainly (unable to close) - Psychiatric Exam Psychiatric exam: Normal Mood - Skin Skin Exam: Warm Assessment and Plan - Assessment and Plan (Free Text) Assessment: 67 year old Female with a PMH of Martinez's Palsy in , CAD s/p stent, HTN, COPD, DM, and overactive bladder who presents with left sided facial weakness, likely 2/2 Martinez's Palsy. Code stroke was activated. CT Head showed no hemorrhage. Patient was started on Acyclovir and steroids, and is improving. Plan: - cont Prednisone 80mg daily for 4 more days then taper (for total of 10 days) - cont Acyclovir 800mg TID for 4 more days - cont artificial tears to affected eye PRN - recommend eye patch before d/c - recommend to f/u neurologist in [place] (since she's travelling) - If she's not better when she returns, she can f/u Dr. Okeefe in July - patient can be safely discharged - further recs per Dr. Okeefe Case was reviewed and discussed with attending, Dr. Maldonado Macdonald PGY2
--- NOTE | 2018-05-22 12:42 | MRI ---
Date of service: 05/22/2018 PROCEDURE: MRI BRAIN WITH AND WITHOUT CONTRAST HISTORY: left sided weakness COMPARISON: Noncontrast head CT from 05/20/2018. TECHNIQUE: Multiplanar, multisequence MR images of the brain were obtained with and without intravenous contrast enhancement. 15 mL Omniscan was injected intravenously. FINDINGS: HEMORRHAGE: None DWI: No evidence of an acute or early subacute infarction. BRAIN PARENCHYMA: There are mild chronic microangiopathic changes. There is no mass, mass effect or abnormal extra-axial fluid collection. The midline sagittal structures are normal. ENHANCEMENT: No abnormal intracranial enhancement. VENTRICLES: There is mild age-related global parenchymal volume loss and proportionate enlargement of the ventricles and cortical sulci. CRANIUM: There is mild hyperostosis frontalis interna, otherwise bone marrow signal is within normal limits. ORBITS: Grossly unremarkable. PARANASAL SINUSES/MASTOIDS: Clear VASCULAR SYSTEM: There are normal signal voids in the larger intracranial arteries. OTHER FINDINGS: None . IMPRESSION: No acute intracranial abnormality. Mild chronic microangiopathic changes and mild age-related global parenchymal volume loss.
--- NOTE | 2018-05-22 13:43 | CP.PCM.DIS ---
<Michelle Salter - Last Filed: 05/22/18 13:52> Provider - Provider Date of Admission: 05/20/18 21:25 Attending physician: Kiah Ronquillo MD Consults: Neuro Time Spent in preparation of Discharge (in minutes): 70 Hospital Course - Lab Results Lab Results: Most Recent Lab Values WBC 9.8 10^3/ul (4.5-11.0) D 05/22/18 05:50 RBC 4.01 10^6/uL (3.5-6.1) 05/22/18 05:50 Hgb 11.4 g/dL (12.0-16.0) L 05/22/18 05:50 Hct 34.6 % (36.0-48.0) L 05/22/18 05:50 MCV 86.3 fl (80.0-105.0) 05/22/18 05:50 MCH 28.4 pg (25.0-35.0) 05/22/18 05:50 MCHC 32.9 g/dl (31.0-37.0) 05/22/18 05:50 RDW 14.0 % (11.5-14.5) 05/22/18 05:50 Plt Count 220 10^3/uL (120.0-450.0) 05/22/18 05:50 MPV 9.5 fl (7.0-11.0) 05/22/18 05:50 Gran % 76.0 % (50.0-68.0) H 05/22/18 05:50 Lymph % (Auto) 17.8 % (22.0-35.0) L 05/22/18 05:50 Upton % (Auto) 6.0 % (1.0-6.0) 05/22/18 05:50 Eos % (Auto) 0.1 % (1.5-5.0) L 05/22/18 05:50 Baso % (Auto) 0.1 % (0.0-3.0) 05/22/18 05:50 Gran # 7.41 (1.4-6.5) H 05/22/18 05:50 Lymph # (Auto) 1.7 (1.2-3.4) 05/22/18 05:50 Upton # (Auto) 0.6 (0.1-0.6) 05/22/18 05:50 Eos # (Auto) 0.0 (0.0-0.7) 05/22/18 05:50 Baso # (Auto) 0.01 K/mm3 (0.0-2.0) 05/22/18 05:50 Neutrophils % (Manual) 90 % (50.0-70.0) H 05/21/18 07:00 Lymphocytes % (Manual) 8 % (22.0-35.0) L 05/21/18 07:00 Monocytes % (Manual) 2 % (1.0-6.0) 05/21/18 07:00 Platelet Evaluation Normal (NORMAL) 05/21/18 07:00 Anisocytosis (manual) Slight 05/21/18 07:00 PT 10.7 SECONDS (9.4-12.5) 05/20/18 19:31 INR 0.94 05/20/18 19:31 APTT 26.2 Seconds (25.1-36.5) 05/20/18 19:31 Sodium 141 mmol/L (132-148) 05/22/18 05:50 Potassium 4.2 mmol/L (3.6-5.0) 05/22/18 05:50 Chloride 105 mmol/L (98-107) 05/22/18 05:50 Carbon Dioxide 24 mmol/L (21-33) 05/22/18 05:50 Anion Gap 16 (10-20) 05/22/18 05:50 BUN 22 mg/dL (7-21) H 05/22/18 05:50 Creatinine 0.8 mg/dl (0.7-1.2) 05/22/18 05:50 Est GFR ( Amer) > 60 05/22/18 05:50 Est GFR (Non-Af Amer) > 60 05/22/18 05:50 POC Glucose (mg/dL) 158 mg/dL (65-110) H 05/22/18 11:11 Random Glucose 139 mg/dL (70-110) H 05/22/18 05:50 Hemoglobin A1c 7.3 % (4.2-6.5) H 05/20/18 20:14 Calcium 9.1 mg/dL (8.4-10.5) 05/22/18 05:50 Phosphorus 3.5 mg/dL (2.5-4.5) 05/20/18 22:48 Magnesium 1.8 mg/dL (1.7-2.2) 05/20/18 22:48 Total Bilirubin 0.4 mg/dL (0.2-1.3) 05/20/18 19:31 AST 39 U/L (14-36) H D 05/20/18 19:31 ALT 36 U/L (7-56) 05/20/18 19:31 Alkaline Phosphatase 80 U/L (38-126) 05/20/18 19:31 Troponin I < 0.01 ng/mL 05/20/18 19:31 Total Protein 8.2 g/dL (5.8-8.3) 05/20/18 19:31 Albumin 4.8 g/dL (3.0-4.8) 05/20/18 19:31 Globulin 3.4 gm/dL 05/20/18 19:31 Albumin/Globulin Ratio 1.4 (1.1-1.8) 05/20/18 19:31 Triglycerides 180 mg/dL (35-160) H 05/20/18 19:31 Cholesterol 152 mg/dL (130-200) 05/20/18 19:31 LDL Cholesterol Direct 69 mg/dL (0-129) 05/20/18 19:31 HDL Cholesterol 53 mg/dL (29-60) 05/20/18 19:31 Urine Color Yellow (YELLOW) 05/22/18 10:30 Urine Appearance Clear (CLEAR) 05/22/18 10:30 Urine pH 6.0 (4.7-8.0) 05/22/18 10:30 Ur Specific Gypsum 1.015 (1.005-1.035) 05/22/18 10:30 Urine Protein Negative mg/dL (<30 mg/dL) 05/22/18 10:30 Urine Glucose (UA) Negative mg/dL (NEGATIVE) 05/22/18 10:30 Urine Ketones Negative mg/dL (NEGATIVE) 05/22/18 10:30 Urine Blood Negative (NEGATIVE) 05/22/18 10:30 Urine Nitrate Negative (NEGATIVE) 05/22/18 10:30 Urine Bilirubin Negative (NEGATIVE) 05/22/18 10:30 Urine Urobilinogen 0.2 E.U./dL (<1 E.U./dL) 05/22/18 10:30 Ur Leukocyte Esterase Negative Sefreino/uL (NEGATIVE) 05/22/18 10:30 Blood Type A POSITIVE 05/20/18 19:36 Blood Type Confirm A POSITIVE 05/20/18 08:55 Antibody Screen Negative 05/20/18 19:36 BBK History Checked No verified bt 05/20/18 19:36 - Hospital Course Hospital Course: Ms. Menard is a 67 year old female with a past medical history of Martinez's Palsy , CAD s/p stent, HTN, COPD, DM, and overactive bladder who presented to the [facility] ED with left-sided facial weakness that began on 05/20. She also reported progressive numbness that started under the left nare and progressed to the left jaw and left cheek and an inability to fully pronounce vowels. She denied any dizziness, changes in vision, recent upper respiratory infections, chest pain, palpitations, fevers, chills, cough, sore throat, weakness, recent travel, bruising, sick contacts, or changes in weight. She admitted to some shortness of breath and constipation but admitted that this was her baseline. She is a former smoker who smoked 1/2 pack per day for 18 years. Her home meds included Stiolto inhaler, glipizide, enalapril, plavix, ASA, atenolol, metformin , tolterodine, simvastatin, and sitagliptin. Hospital Course In the ED, a code stroke was called. A CT of the head was negative. EKG showed NSR at 85bpm without ST/T wave changes. Patient passed the nursing swallow screen and received prednisone and solu-medrol. Dr. Okeefe was consulted in neurology and recommended acyclovir, prednisone, artificial tears, an eye patch, and an MRI of the brain to rule out stroke. The MRI of the brain was negative. Duoneb was started for COPD, artificial tears were given for dry eyes, aspirin and clopidogrel were started for CAD, atenolol and lisinopril were started for HTN, atorvastatin was started for HLD, colace was started for chronic constipation, glipizide and low ISS were started for DM, methylprednisolone was continued for facial weakness, tolterodine was started for overactive bladder, pantoprazole was started for GI prophylaxis, and SCD's were started for DVT prophylaxis. Upon Discharge Patient was instructed to continue prednisone 80mg for 4 more days then taper for a total of 10 days. Patient was instructed to continue acyclovir 800mg TID for 4 more days and to use artificial tears PRN. Patient will be traveling to [place] on 05/30 and was instructed to f/u with a neurologist in [place] and to f/u with Dr. Okeefe if symptoms persist or worsen when she returns to [place]. Please note this is a summary of patient's hospital stay. For full hospital course please see medical records. Additional Instructions Upon discharge, please take the following medications: -continue prednisone 80mg daily for 4 more days then taper (for a total of 10 days) -continue acyclovir 800mg TID for 4 more days -continue artificial tears PRN -continue with home medication dosages and scheduling as prior to admission -use eye patch on affected eye for protection until the ability to completely close the eye has returned Please follow-up with a neurologist in [place]. If you are still experiencing symptoms when you return from [place], please follow-up with Dr. Okeefe. If symptoms worsen or return prior to your trip to [place], visit the emergency department Discharge Exam - Head Exam Head Exam: ATRAUMATIC, NORMAL INSPECTION, NORMOCEPHALIC - Eye Exam Eye Exam: PERRL Additional comments: tearing of L eye - ENT Exam ENT Exam: Mucous Membranes Moist - Respiratory Exam Respiratory Exam: Clear to PA & Lateral, NORMAL BREATHING PATTERN. absent: Rales, Rhonchi, Wheezes - Cardiovascular Exam Cardiovascular Exam: REGULAR RHYTHM. absent: +S1, +S2 - GI/Abdominal Exam GI & Abdominal Exam: Normal Bowel Sounds, Soft. absent: Tenderness - Extremities Exam Extremities exam: full ROM - Back Exam Back exam: NORMAL INSPECTION - Neurological Exam Neurological exam: Alert, Oriented x3 Additional comments: CN II-, VII-XII intact - Psychiatric Exam Psychiatric exam: Normal Affect, Normal Mood Discharge Plan - Discharge Medications Prescriptions: Acyclovir [Zovirax] 800 mg PO TID #12 tab Eye Patch 1 each MC DAILY #1 each predniSONE [predniSONE Tab] 80 mg PO DAILY #16 tab - Follow Up Plan Condition: GOOD Disposition: HOME/ ROUTINE Instructions: Martinez's Palsy (DC) Additional Instructions: Please follow up with your primary care physician within 3 to 5 days. Please follow up with a neurologist in [place]. If you cannot, please follow up with Dr. Okeefe in July by calling [phone] to make an appointment. Please take the following medications as prescribed: Eye drops as needed. Eye patch daily until you have the ability to close your eye. Acyclovir three times a day for 9 days Please resume your home medications as prescribed. Prednisone 80mg for 4 days, then 60mg for 1 day, then 40mg for 1 day, then 20mg for 1 day, then 10mg for 1 day, then 5mg for 1 day. If symptoms return, please visit the emergency department. <Kiah Ronquillo - Last Filed: 05/22/18 15:34> Provider - Provider Date of Admission: 05/20/18 21:25 Attending physician: Kiah Ronquillo MD Hospital Course - Lab Results Lab Results: Most Recent Lab Values WBC 9.8 10^3/ul (4.5-11.0) D 05/22/18 05:50 RBC 4.01 10^6/uL (3.5-6.1) 05/22/18 05:50 Hgb 11.4 g/dL (12.0-16.0) L 05/22/18 05:50 Hct 34.6 % (36.0-48.0) L 05/22/18 05:50 MCV 86.3 fl (80.0-105.0) 05/22/18 05:50 MCH 28.4 pg (25.0-35.0) 05/22/18 05:50 MCHC 32.9 g/dl (31.0-37.0) 05/22/18 05:50 RDW 14.0 % (11.5-14.5) 05/22/18 05:50 Plt Count 220 10^3/uL (120.0-450.0) 05/22/18 05:50 MPV 9.5 fl (7.0-11.0) 05/22/18 05:50 Gran % 76.0 % (50.0-68.0) H 05/22/18 05:50 Lymph % (Auto) 17.8 % (22.0-35.0) L 05/22/18 05:50 Upton % (Auto) 6.0 % (1.0-6.0) 05/22/18 05:50 Eos % (Auto) 0.1 % (1.5-5.0) L 05/22/18 05:50 Baso % (Auto) 0.1 % (0.0-3.0) 05/22/18 05:50 Gran # 7.41 (1.4-6.5) H 05/22/18 05:50 Lymph # (Auto) 1.7 (1.2-3.4) 05/22/18 05:50 Upton # (Auto) 0.6 (0.1-0.6) 05/22/18 05:50 Eos # (Auto) 0.0 (0.0-0.7) 05/22/18 05:50 Baso # (Auto) 0.01 K/mm3 (0.0-2.0) 05/22/18 05:50 Neutrophils % (Manual) 90 % (50.0-70.0) H 05/21/18 07:00 Lymphocytes % (Manual) 8 % (22.0-35.0) L 05/21/18 07:00 Monocytes % (Manual) 2 % (1.0-6.0) 05/21/18 07:00 Platelet Evaluation Normal (NORMAL) 05/21/18 07:00 Anisocytosis (manual) Slight 05/21/18 07:00 PT 10.7 SECONDS (9.4-12.5) 05/20/18 19:31 INR 0.94 05/20/18 19:31 APTT 26.2 Seconds (25.1-36.5) 05/20/18 19:31 Sodium 141 mmol/L (132-148) 05/22/18 05:50 Potassium 4.2 mmol/L (3.6-5.0) 05/22/18 05:50 Chloride 105 mmol/L (98-107) 05/22/18 05:50 Carbon Dioxide 24 mmol/L (21-33) 05/22/18 05:50 Anion Gap 16 (10-20) 05/22/18 05:50 BUN 22 mg/dL (7-21) H 05/22/18 05:50 Creatinine 0.8 mg/dl (0.7-1.2) 05/22/18 05:50 Est GFR ( Amer) > 60 05/22/18 05:50 Est GFR (Non-Af Amer) > 60 05/22/18 05:50 POC Glucose (mg/dL) 158 mg/dL (65-110) H 05/22/18 11:11 Random Glucose 139 mg/dL (70-110) H 05/22/18 05:50 Hemoglobin A1c 7.3 % (4.2-6.5) H 05/20/18 20:14 Calcium 9.1 mg/dL (8.4-10.5) 05/22/18 05:50 Phosphorus 3.5 mg/dL (2.5-4.5) 05/20/18 22:48 Magnesium 1.8 mg/dL (1.7-2.2) 05/20/18 22:48 Total Bilirubin 0.4 mg/dL (0.2-1.3) 05/20/18 19:31 AST 39 U/L (14-36) H D 05/20/18 19:31 ALT 36 U/L (7-56) 05/20/18 19:31 Alkaline Phosphatase 80 U/L (38-126) 05/20/18 19:31 Troponin I < 0.01 ng/mL 05/20/18 19:31 Total Protein 8.2 g/dL (5.8-8.3) 05/20/18 19:31 Albumin 4.8 g/dL (3.0-4.8) 05/20/18 19:31 Globulin 3.4 gm/dL 05/20/18 19:31 Albumin/Globulin Ratio 1.4 (1.1-1.8) 05/20/18 19:31 Triglycerides 180 mg/dL (35-160) H 05/20/18 19:31 Cholesterol 152 mg/dL (130-200) 05/20/18 19:31 LDL Cholesterol Direct 69 mg/dL (0-129) 05/20/18 19:31 HDL Cholesterol 53 mg/dL (29-60) 05/20/18 19:31 Urine Color Yellow (YELLOW) 05/22/18 10:30 Urine Appearance Clear (CLEAR) 05/22/18 10:30 Urine pH 6.0 (4.7-8.0) 05/22/18 10:30 Ur Specific Gypsum 1.015 (1.005-1.035) 05/22/18 10:30 Urine Protein Negative mg/dL (<30 mg/dL) 05/22/18 10:30 Urine Glucose (UA) Negative mg/dL (NEGATIVE) 05/22/18 10:30 Urine Ketones Negative mg/dL (NEGATIVE) 05/22/18 10:30 Urine Blood Negative (NEGATIVE) 05/22/18 10:30 Urine Nitrate Negative (NEGATIVE) 05/22/18 10:30 Urine Bilirubin Negative (NEGATIVE) 05/22/18 10:30 Urine Urobilinogen 0.2 E.U./dL (<1 E.U./dL) 05/22/18 10:30 Ur Leukocyte Esterase Negative Seferino/uL (NEGATIVE) 05/22/18 10:30 Blood Type A POSITIVE 05/20/18 19:36 Blood Type Confirm A POSITIVE 05/20/18 08:55 Antibody Screen Negative 05/20/18 19:36 BBK History Checked No verified bt 05/20/18 19:36 Attending/Attestation - Attestation I have personally seen and examined this patient.: Yes I have fully participated in the care of the patient.: Yes I have reviewed all pertinent clinical information, including history, physical exam and plan: Yes Notes (Text): 05/22/18 15:31 attending note; Patient seen and examined with resident. Patient is a 67 year old Female with a PMHX of Martinez's Palsy in 09/14, CAD s/p stent, HTN, COPD, DM, and overactive bladder who presents with left sided facial weakness. CT head is negative. MRI is negative for any acute findings. Initially code stroke was called. Case discussed with neurologist in detail. CVA was ruled out. Patient with left facial nerve palsy. Started on IV prednisolone and acyclvir. left eye patch ordered. Artificial tears ordered. Patient will be discharged home with po prednisone and acyclovir. Patient denies any focal neurological deficit. ambulating fine. tolerating diet. discharge home today. upon discharge the patient will follow-up with PMd DR. Hutchinson.
== END 2018-05-22 15:04 | disposition home or self-care (01) ==
LOC: ED 19:08 → ERH 21:25 → 3RNO 23:30
PROVIDERS: ADMIT Internal Medicine; ATTEND Internal Medicine
DX: G51.0 Bell's palsy (principal); J44.9 Chronic obstructive pulmonary disease, unspecified; I10 Essential (primary) hypertension; E11.9 Type 2 diabetes mellitus without complications; N32.81 Overactive bladder; I25.10 Atherosclerotic heart disease of native coronary artery without angina pectoris; K59.00 Constipation, unspecified; Z87.891 Personal history of nicotine dependence; Z90.49 Acquired absence of other specified parts of digestive tract; Z95.5 Presence of coronary angioplasty implant and graft; Z88.0 Allergy status to penicillin
CPT/HCPCS: 36415; 70450; 70553; 71045; 80048; 80053; 80061; 81003; 82164; 82948; 83036; 83520; 83735; 84100; 84484; 85025; 85610; 85730; 86039; 86850; 86900; 93005; 96374; 96375; 96376; 99285; A9579; G0378; J0133; J2920; J2930; J7030

== ENCOUNTER 2018-12-12 15:52 | Outpatient (CLI) | payer MEDICARE, OTHER | END 2018-12-12 15:53 | disposition home or self-care (01) | LOC: RAD 15:52 ==

== ENCOUNTER 2018-12-21 13:23 | Outpatient (CLI) | payer MEDICARE, OTHER | END 2018-12-21 13:24 | disposition home or self-care (01) | LOC: RAD 13:23 ==

== ENCOUNTER 2019-02-13 10:45 | Outpatient (CLI) | payer MEDICARE, MEDICAID, OTHER | END 2019-02-13 10:46 | disposition home or self-care (01) | LOC: RAD 10:45 | DX: J84.89 Other specified interstitial pulmonary diseases (principal) ==